=== PATIENT | male | born 1970 | race Caucasian/White ===

== ENCOUNTER 2016-06-21 18:08 | Emergency (ER) | payer OTHER ==
[~2016-06-21] VITALS: Ht 175.3 cm; Wt 86.0 kg
[2016-06-21 18:17] VITALS: BP 131/84; PULSE 72; RESP 20; TEMP 98.2; O2SAT 94
[2016-06-21 18:22] VITALS: BP 131/84; PULSE 76; RESP 20; TEMP 98.2; O2SAT 93
[2016-06-21] MEDS ORDERED: KETOROLAC TROMETHAMINE 60 MG/2 ML (IM) VIAL IM ONE (19:00)
[2016-06-21] MEDS ORDERED: DEXAMETHASONE SOD PHOS 20 MG/5 ML VIAL IM ONE (19:00)
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
[2016-06-21] MEDS ORDERED: IBUP-232 PO (19:42)
== END 2016-06-21 19:59 | disposition home or self-care (01) ==
LOC: NEPD 18:08
DX: S46.911A Strain of unspecified muscle, fascia and tendon at shoulder and upper arm level, right arm, initial encounter (principal); M54.5 Low back pain; V42.5XXA Car driver injured in collision with two- or three-wheeled motor vehicle in traffic accident, initial encounter; Y93.89 Activity, other specified; Y92.410 Unspecified street and highway as the place of occurrence of the external cause; Y99.0 Civilian activity done for income or pay
CPT/HCPCS: 72100; 73030; 96372; 99283; J1100; J1885